=== PATIENT | male | born 1965 | race Caucasian/White ===

== ENCOUNTER 2023-11-01 11:02 | Emergency (ER) | payer OTHER ==
--- OUTSIDE RECORDS SUMMARY | 2023-11-01 11:05 | XMS REPORT | Continuity of Care Document ---
Author Name Unknown Address [address] [facility] [address] [place] [address] [facility] thconnect Address [address] [facility] [address] [place] [address] Care Team Providers Care Bilingual Customer Service Specialist Name Role Phone Pcp, Patient Does Not Have A Primary Care Physic lashon Doctor Unassigned, [place] Attending Clinician U CLAUS Hayden Attending Clinician Unavailable Dian Null DO Attending Clinician DIAN NULL Attending Clinician Unavailable RANDY BURTON Attending Clinician Unavailable RAINA WOODS Attending Clinician Unavailable HEATHER Attending Clinician Unavailable TUAN WEINSTEIN Attending Clinician Unavailesther SOUTH Attending Clinician Unavailable AKOSUA Admitting Clinician Unavailable Payers Payer Name Policy Type Policy Number Effective Date Expirati on Date Source AETJJ DANG [employer] [employer]: [employer] 94 ON STAND 9 [id number] 2022 00:00:00 Allergies, Adverse Reactions, Alerts Allergy Name Allergy Type Status Severity Reaction(s) Onset Date Inactive Date Treating Clinician Comments Source NO KNOWN ALLERGIE S Drug Class Active [facility] Social History Social Habit Start Date Stop Date Quantity Comments Source History of tobacco use Cigarette Smoker [facility] Gender identity [facility] Tobacco use and exposure 2022-12-21 00:00:00 2022-12-21 00:00:00 Smokeless tobacco non-user [facility] Alcohol intake 2022-12-21 00:00:00 2022-12-21 00:00:00 Ex-drinker (finding) [facility] History of Social function 2022-12-21 00:00:00 2022-12-21 00:00:00 [facility] Cigarettes smoked current (pack per day) - Reported 2022-08-30 00:00:00 2022-08-30 00:00:00 Lashonda Mansfield - Rod Sex Assigned At 1965 00:00:00 1965 00:00:00 [facility] Smoking Status Start Date Stop Date Source Smokes tobacco daily 2022-12-21 00:00:00 [facility] Medications Ordered Medication Name Filled Medication Name Start Date Stop Date Current Medication? Ordering Clinician Indication Dosage Frequency Signature (SIG) Comments Components Source HYDROcodone -acetaminop hen 10-325 mg tablet 12-21 11:25: 54 Yes 1{tbl} Take 1 tablet by mouth every 6 (six) hours as needed. [facility] pregabalin 100 mg capsule 12-21 11:25: 54 Yes 100mg Take 1 capsule by mouth every 12 (twelve) hours. [facility] meloxicam 15 mg tablet 12-21 00:00: 00 Yes [id number] 15mg Take 1 tablet by mouth in the morning. [facility] HYDROcodone -Acetaminop hen 10-325 MG oral Tablet 10-04 09:36: 31 Yes 1{tbl} Q.25D Take 1 tablet by mouth every 6 hours as needed for pain Lashonda Mansfield - Externa l Pregabalin (LYRICA OR) 10-04 09:36: 31 Yes 1{capsu le} Take 1 capsule by mouth every 12 hours Lashonda Mansfield - Externa l methylPREDN ISolone (Medrol) 4 MG oral Tablet Therapy Pack 10-04 00:00: 00 Yes [id number] Take is instructed on pack Lashonda Carrilloold - Externa l Pregabalin (LYRICA OR) 09-16 14:54: 47 Yes 1{capsu le} Take 1 capsule by mouth every 12 hours Lashonda Mansfield - Externa l HYDROcodone -Acetaminop hen ([place]) 10-325 MG oral Tablet 09-16 14:53: 13 Yes 1{tbl} Q.25D Take 1 tablet by mouth every 6 hours as needed for pain Lashonda rogers atenoloL 50 mg tablet 08-17 00:00: 00 Yes 50mg Take 1 tablet by mouth. [facility] lisinopriL- hydrochloro thiazide 10-12.5 mg per tablet 08-17 00:00: 00 Yes 1{tbl} Take 1 tablet by mouth every morning. [facility] carisoprodo L 350 mg tablet 08-17 00:00: 00 Yes 350mg Take 1 tablet by mouth. [facility] Trazodone HCl 50 MG oral Tablet 08-17 00:00: 00 Yes 50mg Take 50 mg by mouth nightly Lashonda rogers atorvastati n 20 mg tablet 08-16 00:00: 00 Yes [facility] Vital Signs Vital Name Observation Time Observation Value Comments S ource Systolic blood pressure 2022-12-21 16:22:00 120 mm[Hg] [facility] Diastolic blood pressure 2022-12-21 16:22:00 75 mm[Hg] [facility] Heart rate 2022-12-21 16:22:00 58 /min [facility] Body temperature 2022-12-21 16:22:00 36.67 Kylee [facility] Respiratory rate 2022-12-21 16:22:00 18 /min [facility] Body height 2022-12-21 16:22:00 180.3 cm [facility] Body weight 2022-12-21 16:22:00 80.377 kg [facility] BMI 2022-12-21 16:22:00 24.71 kg/m2 [facility] Oxygen saturation in Arterial blood by Pulse oximetry 2022-12-21 16:22:00 96 /min [facility] Body height 2022-10-04 14:32:00 180.3 cm Melanie ey Seybold - External Body weight 2022-10-04 14:32:00 81.647 kg Melanie ey Seybold - External BMI 2022-10-04 14:32:00 25.10 kg/m2 Melanie ey Seybold - External Body height 2022-09-16 20:48:00 180.3 cm Melanie ey Seybold - External Body weight 2022-09-16 20:48:00 80.74 kg Melanie ey Seybold - External BMI 2022-09-16 20:48:00 24.83 kg/m2 Melanie ey Seybold - External Oxygen saturation in Arterial blood by Pulse oximetry 2022-09-16 20:48:00 94 /min Lashonda Seybo ld - External Systolic blood pressure 2022-09-16 20:48:00 110 mm[Hg] Lashonda Seybo ld - External Diastolic blood pressure 2022-09-16 20:48:00 58 mm[Hg] Lashonda Seybo ld - External Heart rate 2022-09-16 20:48:00 87 /min Kelse y Seybold - External Body temperature 2022-09-16 20:48:00 36.89 Kylee Lashonda Seybold - External Respiratory rate 2022-09-16 20:48:00 16 /min Lashonda Seybold - External Systolic blood pressure 2022-08-30 17:14:00 100 mm[Hg] Lashonda Seybo ld - External Diastolic blood pressure 2022-08-30 17:14:00 56 mm[Hg] Lashonda Seybo ld - External Heart rate 2022-08-30 17:14:00 66 /min Kelse y Seybold - External Body temperature 2022-08-30 17:14:00 36.56 Kylee Lashonda Seybold - External Respiratory rate 2022-08-30 17:14:00 16 /min Lashonda Seybold - External Body height 2022-08-30 17:14:00 180.3 cm Melanie ey Seybold - External Body weight 2022-08-30 17:14:00 80.287 kg Melanie ey Seybold - External BMI 2022-08-30 17:14:00 24.69 kg/m2 Melanie ey Seybold - External Oxygen saturation in Arterial blood by Pulse oximetry 2022-08-30 17:14:00 95 /min Lashonda Armenta ld - External Procedures Procedure Date / Time Performed Performing Clinicia n Source EXTERNAL PROVIDER RECORDS 2023-01-21 05:01:00 Doctor Unassigned, [place] [facility] XR LUMBAR SPINE 3 VW 2022-12-21 17:13:00 Facundo Null [facility] XR SACRUM AND COCCYX 2022-12-21 17:13:00 Facundo Null [facility] Encounters Start Date/Time End Date/Time Encounter Type Admission Type Attending [facility] Care Department Encounter ID Source 2023-01-21 00:00:00 2023-01-21 00:00:00 Orders Only Doctor Unassigned, [place] [facility] [id number] [facility] 2022-12-27 10:45:00 2022-12-27 10:45:00 Outpatient CLAUS ZACARIAS [id number] Lashonda Mansfield 2022-12-22 00:00:00 2022-12-22 00:00:00 Telephone Dian Null [facility] [id number] [facility] 2022-12-21 11:45:00 2022-12-21 23:59:00 Outpatient R DIAN NULL [facility] [id number] [facility] 2022-12-21 11:45:00 2022-12-21 23:59:00 Hospital Encounter Dian [facility] [id number] [facility] 2022-12-21 10:40:00 2022-12-21 11:00:00 Office Visit Dian Null [facility] [id number] [facility] 2022-11-03 15:50:00 2022-11-03 15:50:00 Outpatient RANDY BURTON LASHONDA BAH [id number] Lashonda [facility] 2022-10-14 00:00:00 2022-10-14 00:00:00 Outpatient RAINA WOODS LASHONDA BAH [id number] [facility] 2022-10-04 09:30:00 2022-10-04 09:30:00 Outpatient CLAUS ZACARIAS [facility]DA [facility]AH [id number] [facility] 2022-09-17 10:15:00 2022-09-17 10:15:00 Outpatient HEATHER BAH [id number] [facility] 2022-09-16 15:30:00 2022-09-16 15:30:00 Outpatient HEATHER BAH [id number] [facility] 2022-09-16 14:45:00 2022-09-16 14:45:00 Outpatient TUAN WEINSTEIN [id number] L[place] 2022-09-15 00:00:00 2022-09-15 00:00:00 Outpatient TUAN WEINSTEIN [id number] L[place] 2022-08-30 11:15:00 2022-08-30 11:15:00 Outpatient TUAN WEINSTEIN [id number] [facility] 2022-02-05 00:00:00 2022-02-05 00:00:00 Outpatient MICHELLE[facility]BRENDA [facility] [id number] [facility]
[2023-11-01] MEDS ORDERED: KETOROLAC 30 MG/ML INJ ONE (11:30)
[2023-11-01] MEDS ORDERED: MORPHINE 4 MG/ML SYR ONE (11:30)
[2023-11-01] MEDS ORDERED: dexAMETHasone 10 MG/ML VIAL ONE (11:30)
[2023-11-01] MEDS ORDERED: ONDANSETRON 4 MG/2 ML VIAL ONE (11:30)
--- NOTE | 2023-11-01 12:23 | RAD REPORT ---
EXAM DESCRIPTION: CT - Abdomen Pelvis Wo Contrast - 11/01/2023 12:09 pm CLINICAL HISTORY: Pain;Lower back pain COMPARISON: No comparisons TECHNIQUE: Thin cut axial CT imaging of the abdomen and pelvis was performed without IV contrast. Mu ltiplanar reformats were generated and reviewed. All CT scans are performed using dose optimization technique as appropriate and may include automated exposure control or mA/KV adjustment according to patient size. FINDINGS: No suspicious findings in the lung bases. The liver, spleen, adrenal glands, and pancreas show no suspicious findings. Gallbladder and biliary tree are also without suspicious finding. Symmetric renal contour, without suspicious parenchymal findings within limits of noncontrast techniq ue. No evidence of radiopaque calculi or hydroureteronephrosis. No dilated bowel loops or bowel wall thickening. No free air, free fluid or inflammatory stranding. N o hernia, mass or bulky lymphadenopathy. The urinary bladder is without significant finding. Mild pro statomegaly. No suspicious bony findings. IMPRESSION: No acute intra-abdominal process.
--- NOTE | 2023-11-01 12:30 | RAD REPORT ---
EXAM DESCRIPTION: US - Extremity Venous Uni Ltd - 11/01/2023 12:06 pm CLINICAL HISTORY: Pain COMPARISON: None. TECHNIQUE: Real-time sonographic evaluation of the left lower extremity deep venous system was perfo rmed. FINDINGS: Normal compressibility, flow augmentation, phasic flow and spontaneous flow is identified in the left lower extremity deep venous system. No intraluminal filling defects seen. IMPRESSION: No DVT in the left lower extremity.
--- NOTE | 2023-11-01 12:32 | RAD REPORT ---
EXAM DESCRIPTION: US - Lower Extremity Artery Uni Ltd - 11/01/2023 12:06 pm CLINICAL HISTORY: PAIN COMPARISON: No comparisons TECHNIQUE: Left lower extremity arterial Doppler examination was performed with waveform tracing. FINDINGS: Biphasic waveforms are seen throughout the left lower extremity arterial system to the level of the p osterior tibial artery. Monophasic waveforms are seen along the left dorsalis pedis artery. Moderate to advanced calcific plaque along the common femoral and superficial femoral arteries. IMPRESSION: Mild to moderate left lower extremity peripheral vascular disease.
--- NOTE | 2023-11-01 13:31 | ER ---
Nurse's Notes [facility] Name: Ozzie Pineda Age: 58 yrs Sex: Male : 1965 Arrival Date: 11/01/2023 Time: 11:02 Bed 18 Private MD: Diagnosis: Pain in left leg;Radiculopathy, lumbar region Presentation: 10/31 11:19 Chief complaint: Patient states: he has been having left leg pain since last Tuesday, 3 and was evaluated in an ED in [place] Tuesday. Patient reports that the pain radiates into groin area, and that the pain is rated as a 9/10 on the pain scale. Coronavirus screen: At this time, the client does not indicate any symptoms associated with coronavirus-19. Ebola Screen: No symptoms or risks identified at this time. Initial Sepsis Screen: Does the patient meet any 2 criteria? No. Patient's initial sepsis screen is negative. Does the patient have a suspected source of infection? No. Patient's initial sepsis screen is negative. Risk Assessment: Do you want to hurt yourself or someone else? Patient reports no desire to harm self or others. Onset of symptoms was October 26, 2023. 11:19 Method Of Arrival: Ambulatory ap3 11:19 Acuity: OUSMANE 3 ap3 Triage Assessment: 11:21 General: Appears uncomfortable, Behavior is calm, cooperative, appropriate for age. ap3 Pain: Complains of pain in right leg Pain radiates to pelvis. Neuro: Level of Consciousness is awake, alert, obeys commands, Oriented to person, place, time, situation. Cardiovascular: Patient's skin is warm and dry. Respiratory: Airway is patent Respiratory effort is even, unlabored, Respiratory pattern is regular, symmetrical. GI: Reports nausea. Historical: - Allergies: 11:19 No Known Allergies; ap3 - PMHx: 11:19 Hypertensive disorder; ap3 - Immunization history:: Adult Immunizations unknown. - Infectious Disease History:: Denies. - Social history:: Smoking status: Patient reports the use of cigarette tobacco products, smokes one pack cigarettes per day. Patient uses street drugs, marijuana. - Family history:: not pertinent. - Hospitalizations: : No recent hospitalization is reported. Screenin:22 Abuse screen: Denies threats or abuse. Nutritional screening: No deficits noted. ap3 Tuberculosis screening: No symptoms or risk factors identified. 11:26 [facility] ED Fall Risk Assessment (Adult) History of falling in the last 3 months, mb9 including since admission No falls in past 3 months (0 pts) Confusion or Disorientation No (0 pts) Intoxicated or Sedated No (0 pts) Impaired Gait No (0 pts) Mobility Assist Device Used No (0 pt) Altered Elimination No (0 pt) Score/Fall Risk Level 0 - 2 = Low Risk Oriented to surroundings, Maintained a safe environment, Educated pt \T\ family on fall prevention, incl call for assistance when getting out of bed, Assessed \T\ reinforced patient's understanding of fall precautions, Hourly rounding (assess needs \T\ fall precautionary measures) done. Assessment: 11:27 General: Appears in no apparent distress. Behavior is calm, cooperative, appropriate mb9 for age. Neuro: Flynn Agitation-Sedation Scale (RASS): 0 - Alert and Calm Level of Consciousness is awake, alert, obeys commands, Oriented to person, place, time, situation, Appropriate for age. Cardiovascular: Patient's skin is warm and dry. Respiratory: Airway is patent Respiratory effort is even, unlabored, Respiratory pattern is regular, symmetrical. GI: No signs and/or symptoms were reported involving the gastrointestinal system. : No signs and/or symptoms were reported regarding the genitourinary system. EENT: No signs and/or symptoms were reported regarding the EENT system. Derm: Skin is pink, warm \T\ dry. Musculoskeletal: Range of motion: intact in all extremities. 11:27 Pain: Complains of pain in left leg Pain radiates to pelvis Pain currently is 8 out of mb9 10 on a pain scale. Quality of pain is described as throbbing, Pain began suddenly, Is continuous. 12:40 Reassessment: No changes from previously documented assessment. Patient and/or family mb9 updated on plan of care and expected duration. Pain level reassessed. Patient is alert, oriented x 3, equal unlabored respirations, skin warm/dry/pink. 13:40 Reassessment: No changes from previously documented assessment. Patient and/or family mb9 updated on plan of care and expected duration. Pain level reassessed. Patient is alert, oriented x 3, equal unlabored respirations, skin warm/dry/pink. Vital Signs: 11:19 BP 160 / 82; Pulse 70; Resp 17; Temp 97.9; Pulse Ox 100% ; Weight 79.38 kg; Height 5 ap3 ft. 11 in. ; Pain 9/10; 13:14 BP 174 / 79; Pulse 78; Resp 18; Pulse Ox 100% on R/A; mb9 11:19 Body Mass Index 24.41 (79.38 kg, 180.34 cm) ap3 11:19 Pain Scale: Adult ap3 ED Course: 11:04 Patient arrived in ED. im 11:12 Casey Michel MD is Attending Physician. rn 11:21 Triage completed. ap3 11:22 Arm band placed on right wrist. ap3 11:26 Lore Pierce, NAZANIN is Primary Nurse. mb9 11:26 Placed in gown. Bed in low position. Call light in reach. Side rails up X 1. Client mb9 placed on continuous cardiac and pulse oximetry monitoring. NIBP monitoring applied. Door closed. Noise minimized. Warm blanket given. 11:26 Provided Education on: press call light if needing anything. mb9 11:40 Inserted saline lock: 22 gauge in right antecubital area, using aseptic technique. mb9 12:07 Extremity Venous [employer] US In Process Unspecified. EDMS 12:08 Lower Extremity Artery [employer] US In Process Unspecified. EDMS 12:10 Abdomen In Process Unspecified. EDMS 13:20 No provider procedures requiring assistance completed. IV discontinued, intact, mb9 bleeding controlled, No redness/swelling at site. Pressure dressing applied. Administered Medications: 11:32 Drug: Ketorolac IVP 15 mg IVP once Route: IVP; Site: right antecubital; mb9 12:40 Follow up: Response: No adverse reaction mb9 11:35 Drug: Ondansetron IVP 4 mg IVP once; over 2 minutes Route: IVP; Site: right antecubital;mb9 12:40 Follow up: Response: No adverse reaction mb9 11:38 Drug: Decadron - Dexamethasone IVP 10 mg IVP once Route: IVP; Site: right antecubital; mb9 12:40 Follow up: Response: No adverse reaction mb9 11:40 Drug: morphine IVP or IV 4 mg IVP once over 4 mins Route: IVP; Infused Over: 4 mins; mb9 Site: right antecubital; 12:40 Follow up: Response: No adverse reaction mb9 Medication: 11:26 VIS not applicable for this client. mb9 Outcome: 13:30 Discharge ordered by . nazanin 13:40 Discharged to home ambulatory, mb9 13:40 Condition: stable 13:40 Discharge instructions given to patient, Instructed on discharge instructions, follow up and referral plans. Demonstrated understanding of instructions, follow-up care, medications, Prescriptions given X 3, 13:40 Patient left the ED. mb9 Signatures: Dispatcher [employer] EDMS Casey Michel MD MD rn Swetha Núñez RN RN ap3 Lore Pierce RN RN mb9 Deirdre [place] [facility]: (The following items were deleted from the chart) 11:28 11:27 Pain: Complains of pain in right leg Pain radiates to pelvis mb9 mb9
--- NOTE | 2023-11-01 13:32 | EDPHYS ---
Physician Documentation [facility] Name: Ozzie Pineda Age: 58 yrs Sex: Male : 1965 Arrival Date: 11/01/2023 Time: 11:02 Bed 18 Private MD: ED Physician Casey Michel HPI: 10/31 11:30 This 58 yrs old Male presents to ER via Ambulatory with complaints of Leg Pain. rn 11:30 The patient presents with pain, that is acute. The complaints affect the left upper rn thigh and left quadriceps. Onset: The symptoms/episode began/occurred 1 week(s) ago. Modifying factors: The symptoms are alleviated by remaining still, the symptoms are aggravated by movement. Associated signs and symptoms: Pertinent negatives fever, rash, swelling, weakness. Severity of symptoms: At their worst the symptoms were moderate, in the emergency department the symptoms are unchanged. The patient has not experienced similar symptoms in the past. The patient has been recently seen by a physician:. Patient reports approximately 1 week of left groin pain. No trauma. Has chronic back problems and noticed this pain started shortly after sleeping on an air mattress. No fever. No weakness.. Historical: - Allergies: 11:19 No Known Allergies; ap3 - PMHx: 11:19 Hypertensive disorder; ap3 - Immunization history:: Adult Immunizations unknown. - Infectious Disease History:: Denies. - Social history:: Smoking status: Patient reports the use of cigarette tobacco products, smokes one pack cigarettes per day. Patient uses street drugs, marijuana. - Family history:: not pertinent. - Hospitalizations: : No recent hospitalization is reported. ROS: 11:30 Constitutional: Negative for fever, chills, and weight loss, Cardiovascular: Negative rn for chest pain, palpitations, and edema, Respiratory: Negative for shortness of breath, cough, wheezing, and pleuritic chest pain, Abdomen/GI: Negative for abdominal pain, nausea, vomiting, diarrhea, and constipation, Back: Positive for back pain : Negative for injury, bleeding, discharge, and swelling, MS/Extremity: Positive for left groin and thigh pain Skin: Negative for injury, rash, and discoloration, Neuro: Negative for headache, weakness, numbness, tingling, and seizure, Exam: 11:30 Constitutional: This is a well developed, well nourished patient who is awake, alert, rn appears in pain. Ambulatory to triage without assistance Abdomen/GI: Soft, nontender Skin: Warm, dry, lack of hair noted bilateral pretibial regions MS/ Extremity: Pulses diminished but equal, no cyanosis. Neurovascular intact. Full, normal range of motion. Equal circumference. No calf tenderness. No focal tenderness upon palpation of proximal leg or groin. No masses felt. No lymphadenopathy. Neuro: Awake and alert, GCS 15 Vital Signs: 11:19 BP 160 / 82; Pulse 70; Resp 17; Temp 97.9; Pulse Ox 100% ; Weight 79.38 kg; Height 5 ap3 ft. 11 in. ; Pain 9/10; 13:14 BP 174 / 79; Pulse 78; Resp 18; Pulse Ox 100% on R/A; mb9 11:19 Body Mass Index 24.41 (79.38 kg, 180.34 cm) ap3 11:19 Pain Scale: Adult ap3 MDM: 11:12 Patient medically screened. rn 13:29 Differential diagnosis: Radiculopathy, arterial insufficiency, peripheral vascular rn disease, DVT. Data reviewed: vital signs, nurses notes, radiologic studies, CT scan, ultrasound, and as a result, I will discharge patient. Counseling: I had a detailed discussion with the patient and/or guardian regarding the historical points, exam findings, and any diagnostic results supporting the discharge/admit diagnosis, lab results, radiology results, the need for outpatient follow up, to return to the emergency department if symptoms worsen or persist or if there are any questions or concerns that arise at home. Response to treatment: the patient's symptoms have markedly improved after treatment, and as a result, I will discharge patient. Special discussion: I discussed with the patient/guardian in detail that at this point there is no indication for admission to the hospital. It is understood, however, that if the symptoms persist or worsen the patient needs to return immediately for re-evaluation. ED course: I have personally reviewed all of the results, including but not limited to blood tests and imaging deemed necessary to safely discharge this patient at this time. All results given to and printed out for patient. I personally went over all the results with the patient and answered all questions. Patient will follow-up with PCP and or specialist as discussed. Return precautions given and understood.. 10/31 11:27 Order name: Extremity Venous Uni Ltd ; Complete Time: 12:36 rn 10/31 11:27 Order name: Lower Extremity Artery [employer] US; Complete Time: 12:36 rn 10/31 11:35 Order name: Abdomen ; Complete Time: 12:36 EDMS 10/31 11:27 Order name: IV Start; Complete Time: 11:39 rn Administered Medications: 11:32 Drug: Ketorolac IVP 15 mg IVP once Route: IVP; Site: right antecubital; mb9 12:40 Follow up: Response: No adverse reaction mb9 11:35 Drug: Ondansetron IVP 4 mg IVP once; over 2 minutes Route: IVP; Site: right antecubital;mb9 12:40 Follow up: Response: No adverse reaction mb9 11:38 Drug: Decadron - Dexamethasone IVP 10 mg IVP once Route: IVP; Site: right antecubital; mb9 12:40 Follow up: Response: No adverse reaction mb9 11:40 Drug: morphine IVP or IV 4 mg IVP once over 4 mins Route: IVP; Infused Over: 4 mins; mb9 Site: right antecubital; 12:40 Follow up: Response: No adverse reaction mb9 Disposition Summary: 11/01/23 13:30 Discharge Ordered Notes: Location: Home rn Problem: new rn Symptoms: have improved rn Condition: Stable rn Diagnosis - Pain in left leg rn - Radiculopathy, lumbar region rn Followup: rn - With: Private Physician - When: As needed - Reason: Recheck today's complaints, Re-evaluation by your physician Discharge Instructions: - Discharge Summary Sheet rn - Lumbosacral Radiculopathy rn - Pinched Nerve rn Forms: - Medication Reconciliation Form 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 - Prescription Opioid Use rn - Patient Portal Instructions rn - Leadership Thank You Letter rn Prescriptions: - gabapentin 100 mg Oral capsule - take 1 capsule ORAL route every 12 hours; 14 capsule; Refills: 0, Product rn Selection Permitted - Tramadol 50 mg Oral Tablet - take 1 tablet ORAL route every 8 hours as needed; 12 tablet; Refills: 0, rn Product Selection Permitted - Medrol (Garrett) 4 mg Oral Tablets, Dose Pack - take 1 tablet ORAL route as directed - follow package instructions; 1 packet; rn Refills: 0, Product Selection Permitted Signatures: Dispatcher [employer] EDMS Casey Michel MD MD rn Wilton, Swetha RN RN ap3 Lore Pierce RN RN mb9 Corrections: (The following items were deleted from the chart) 11:35 11:29 Spine Lumbar Wo Con+CT.RAD.BRZ ordered. EDMS EDMS
[2023-11-01 13:59] VITALS: BP 174/79; TEMP 97.9; O2SAT 100
== END 2023-11-01 13:40 | disposition home or self-care (01) ==
LOC: ER 11:02
DX: M54.16 Radiculopathy, lumbar region (principal); I10 Essential (primary) hypertension; F17.210 Nicotine dependence, cigarettes, uncomplicated
CPT/HCPCS: 74176; 93926; 93971; J1100; J2405